=== PATIENT | female | born 1990 | race Caucasian/White ===

== ENCOUNTER 2017-07-08 11:56 | Emergency (ER) | payer MEDICAID ==
--- NOTE | 2017-07-08 13:30 | ED Physician Documentation ---
PD HPI HEAD INJURY - Stated complaint Stated Complaint: HEAD PX - Chief complaint Chief Complaint: Neuro - History obtained from History obtained from: Patient - History of Present Illness Mechanism of head injury: Fell Where head injury occurred: Home Timing - onset: How many months ago (3) Location of injury: Back Quality of pain: Pain, Throbbing Associated symptoms: Amnesia. No: LOC, Nausea / vomiting, Neck pain, Paresthesias, Seizures, Ear drainage, Nasal drainage Symptoms improve with: Rest Symptoms worsen with: Palpation, Movement Contributing factors: No: Anticoagulated Similar symptoms before: Has not had sx before Recently seen: Not recently seen - Additional information Additional information: 26-year-old female has a loft in her home and she was up on a ladder going into the loft when she fell backwards she fell onto the back of her head and had a large hematoma on her occiput. She states that she has vague memory of the day that this occurred and she felt that she improved over the next 2 weeks. Since that time she has had headache specifically in the area where she struck her head and she is having some difficulty concentrating sometimes and has some problem with her short-term memory. The symptoms have persisted and she is come to the emergency department for evaluation. She is not having difficulty with her vision she is not having vomiting she is not having dizziness. She does have a headache and sometimes has a shocklike sensation in her scalp where this has occurred. Review of Systems Constitutional: denies: Fever, Chills, Myalgias Eyes: denies: Loss of vision, Decreased vision Ears: denies: Ear pain Nose: denies: Rhinorrhea / runny nose, Congestion Throat: denies: Sore throat Cardiac: denies: Chest pain / pressure, Palpitations Respiratory: denies: Dyspnea, Cough GI: denies: Abdominal Pain, Nausea, Vomiting : denies: Dysuria, Frequency Skin: denies: Rash Musculoskeletal: denies: Neck pain, Back pain, Extremity pain Neurologic: reports: Headache, Head injury. denies: Generalized weakness, Focal weakness, Numbness, Difficulty speaking, LOC PD PAST MEDICAL HISTORY - Past Surgical History Past Surgical History: No - Present Medications Home Medications: Ambulatory Orders Medication Instructions Recorded Confirmed Levonorgestrel [Mirena] 1 unit IU ONCE 09/22/13 09/22/13 - Allergies Allergies/Adverse Reactions: Allergies Allergy/AdvReac Type Severity Reaction Status Date / Time cefaclor [From [facility]] Allergy Unknown Verified 09/22/13 20:29 - Social History Does the pt smoke?: Yes Smoking Status: Current every day smoker Does the pt drink ETOH?: Yes Does the pt have substance abuse?: Yes - Immunizations Immunizations are current?: Yes PD ED PE NORMAL - Vitals Vital signs reviewed: Yes (normal ) - General General: Alert and oriented X 3, No acute distress, Well developed/nourished - HEENT HEENT: PERRL, EOMI, Ears normal, Moist mucous membranes, Pharynx benign, Dentition benign, Other (over the occiput on the right side is an area about 1cm round that is elevated and tender. There is no crepitence and no fluctuance. There is no pain to the greater occipital exit area and no pain to the cervical spine. 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, No motor deficit, No sensory deficit, Normal speech Eye Opening: Spontaneous Motor: Obeys Commands Verbal: Oriented GCS Score: 15 - Psych Psych: Normal mood, Normal affect Results - Vitals Vitals: Vital Signs - 24 hr 07/08/17 12:07 Temperature 36.2 C L Heart Rate 71 Respiratory 18 Rate Blood Pressure 122/63 O2 Saturation 100 Oxygen O2 Source Room air - Rads (name of study) CT head without Radiology: Prelim report reviewed (Impression: No acute intracranial CT abnormality.), EMP read indepedently, See rad report PD MEDICAL DECISION MAKING - ED course Complexity details: reviewed old records, reviewed results, re-evaluated patient , considered differential, d/w patient ED course: 26 y/o female with a concussion 3 months ago continues to have daily headache and trouble concentrating. Her CT is negative and she appears to have no other specific reason for symptoms and she is diagnosed with post concussive syndrome. Departure - Departure Disposition: 01 Home, Self Care Clinical Impression: Post-concussion headache Condition: Stable Instructions: TBI Headaches, TBI Improve Cognition Follow-Up: [facility] [Provider Group]
--- NOTE | 2017-07-08 15:14 | CT Report ---
EXAM: CT HEAD EXAM DATE: 07/08/2017 02:19 PM. CLINICAL HISTORY: Occipital contusion continued headache. COMPARISON: None. TECHNIQUE: Multiaxial CT images were obtained from the foramen magnum to the vertex. Reformats: Coron al. IV contrast: None. In accordance with CT protocol optimization, one or more of the following dose reduction techniques w ere utilized for this exam: automated exposure control, adjustment of mA and/or KV based on patient s ize, or use of iterative reconstructive technique. FINDINGS: Parenchyma: No intraparenchymal hemorrhage. No evidence of mass, midline shift, or CT findings of inf arction. Cruz-white differentiation is distinct. Extraaxial Spaces: Normal for age. No subdural or epidural collections identified. Ventricles: Normal in size and position. Sinuses and Orbits: There is mild left maxillary sinus mucosal thickening. Bones: No evidence of fracture or calvarial defect. Other: None. IMPRESSION: No acute intracranial CT abnormality. [facility] Referring Provider Line: [phone] SITE ID: [id number]
[2017-07-08 15:29] VITALS: BP 107/57
== END 2017-07-08 15:28 | disposition home or self-care (01) ==
LOC: ED 11:56
DX: F07.81 Postconcussional syndrome (principal); G44.309 Post-traumatic headache, unspecified, not intractable; F17.200 Nicotine dependence, unspecified, uncomplicated
CPT/HCPCS: 70450; 99283

== ENCOUNTER 2017-08-01 08:00 | Outpatient (CLI) | payer MEDICAID | END 2017-08-01 08:01 | LOC: LAB.R 08:00 | PROVIDERS: ATTEND Obstetrics & Gynecology | DX: Z11.3 Encounter for screening for infections with a predominantly sexual mode of transmission (principal); N76.0 Acute vaginitis | CPT/HCPCS: 87070; 87077; 87480; 87491; 87510; 87591; 87660 ==

== ENCOUNTER 2018-03-31 08:00 | Outpatient (CLI) | payer MEDICAID | END 2018-03-31 23:59 | disposition home or self-care (01) | LOC: LAB.R 08:00 | PROVIDERS: ATTEND Nurse Practitioner Obstetrics & Gynecology | DX: N76.0 Acute vaginitis (principal); Z11.3 Encounter for screening for infections with a predominantly sexual mode of transmission | CPT/HCPCS: 87480; 87491; 87510; 87591; 87660 ==

== ENCOUNTER 2018-03-31 13:04 | Outpatient (CLI) | payer MEDICAID ==
[2018-04-01 11:05] LABS: HIV AG/AB 4TH GEN NON-REACTIVE (NON-REACTIVE)
[2018-04-01 12:36] LABS: HEPATITIS C ANTIBODY NON-REACTIVE (NON-REACTIVE)
[2018-04-04 07:58] LABS: HSV 1 IGG TYPE SPECIFIC AB <0.90 index; HSV 2 IGG TYPE SPECIFIC AB 1.72 index
== END 2018-03-31 13:05 | disposition home or self-care (01) ==
LOC: LAB 13:04
PROVIDERS: ATTEND Nurse Practitioner Obstetrics & Gynecology
DX: Z11.3 Encounter for screening for infections with a predominantly sexual mode of transmission (principal); N76.0 Acute vaginitis
CPT/HCPCS: 36415; 81599; 86592; 86695; 86696; 86803; 87389; 87480; 87491; 87510; 87591; 87660

== ENCOUNTER 2020-03-20 15:19 | Outpatient (CLI) | payer MEDICAID | END 2020-03-20 15:20 | disposition home or self-care (01) | LOC: COV 15:19 | PROVIDERS: ATTEND Family Medicine | DX: U07.1 COVID-19 (principal) ==

== ENCOUNTER 2020-09-19 13:04 | Emergency (ER) | payer MEDICAID ==
[2020-09-19 13:14] VITALS: BP 141/70
[2020-09-19 13:29] LABS: BILIRUBIN,URINE NEGATIVE (NEGATIVE); GLUCOSE, URINE (UA) NEGATIVE (NEGATIVE); KETONES,URINE (UA) NEGATIVE (NEGATIVE); LEUKOCYTE ESTERASE, URINE TRACE (NEGATIVE); NITRITE,URINE NEGATIVE (NEGATIVE); OCCULT BLOOD,URINE MODERATE (NEGATIVE); PH,URINE 6.5 PH (5.0-7.5); PROTEIN,URINE TRACE mg/dL (NEGATIVE); UROBILINOGEN,URINE 0.2 (NORMAL) E.U./dL (NORMAL)
[2020-09-19 13:34] LABS: CLARITY,URINE CLEAR (CLEAR); HCG UR QUAL NEGATIVE
[2020-09-19 13:36] LABS: BACTERIA,URINE Rare /HPF (None Seen); SQUAMOUS EPITHELIAL CELL,UR FEW Squamous (<= Few); WBC,URINE 0-3 /HPF (0-5)
--- OUTSIDE RECORDS SUMMARY | 2020-09-19 13:44 | EXTERNAL MEDICAL SUMMARY RPT | Continuity of Care Document ---
:1990 Demographics Phone Unavailable Preferred Language Unknown Marital Status Unknown Taoism Affiliation Unknown Race Unknown Ethnic Group Unknown Author Organization [place] Address [address] [id number] Phone Allergies Encounters Medications Problems Results
[2020-09-19] MEDS ORDERED: PHENAZOPYRIDINE 100 MG TABLET PO STA (14:48)
[2020-09-19] MEDS ORDERED: SULFAMETH/TRIMETH DS 800/160 MG TABLET PO STA (14:48)
--- NOTE | 2020-09-19 14:50 | ED Physician Documentation ---
PD HPI ABD PAIN - Stated complaint Stated Complaint: FEMALE - Chief complaint Chief Complaint: Abd Pain - History obtained from History obtained from: Patient (Dysuria and frequency since yesterday and today with some right flank discomfort. No fevers or nausea.) Review of Systems Constitutional: denies: Fever, Chills Throat: reports: Reviewed and negative Cardiac: reports: Reviewed and negative PD PAST MEDICAL HISTORY - Past Surgical History Past Surgical History: No - Present Medications Home Medications: Ambulatory Orders Medication Instructions Recorded Confirmed Levonorgestrel [Mirena] 1 unit IU ONCE 09/22/13 09/22/13 Phenazopyridine HCl [Pyridium] 200 mg PO TID PRN #6 tablet 09/19/20 Sulfamethox/Trimeth 800/160 1 each PO BID #20 tablet 09/19/20 [Bactrim Ds 800/160] - Allergies Allergies/Adverse Reactions: Allergies Allergy/AdvReac Type Severity Reaction Status Date / Time cefaclor [From Ceclor] Allergy Unknown Verified 09/19/20 13:10 - Social History Does the pt smoke?: Yes Smoking Status: Current every day smoker Does the pt drink ETOH?: Yes Does the pt have substance abuse?: Yes - Immunizations Immunizations are current?: Yes PD ED PE NORMAL - Vitals Vital signs reviewed: Yes - General General: Alert and oriented X 3, No acute distress - Abdomen Abdomen: Normal bowel sounds, Soft, Non tender - Rectal Rectal: Other (Mild right flank tenderness) - Neuro Neuro: Alert and oriented X 3 Results - Vitals Vitals: Vital Signs - 24 hr 09/19/20 13:10 Temperature 36.0 C L Heart Rate 72 Respiratory 16 Rate Blood Pressure 141/70 H O2 Saturation 100 Oxygen O2 Source Room air - Labs Labs: Laboratory Tests 09/19/20 13:15 Urine Color YELLOW Urine Clarity CLEAR Urine pH 6.5 Ur Specific [place] 1.020 Urine Protein TRACE Urine Glucose (UA) NEGATIVE Urine Ketones NEGATIVE Urine Occult Blood MODERATE H Urine Nitrite NEGATIVE Urine Bilirubin NEGATIVE Urine Urobilinogen 0.2 (NORMAL) Ur Leukocyte Esterase TRACE H Urine RBC 6-10 H Urine WBC 0-3 Ur Squamous Epith Cells FEW Squamous Urine Bacteria Rare Ur Microscopic Review INDICATED Urine Culture Comments INDICATED Urine HCG, Qual NEGATIVE Departure - Departure Disposition: 01 Home, Self Care Clinical Impression: Pyelonephritis Condition: Good Record reviewed to determine appropriate education?: Yes Instructions: Pyelonephritis Dc Follow-Up: Johann Mendoza MD [Provider Admit Priv/Credential] - Prescriptions: Sulfamethox/Trimeth 800/160 [Bactrim Ds 800/160] 1 each PO BID #20 tablet Phenazopyridine HCl [Pyridium] 200 mg PO TID PRN #6 tablet PRN Reason: dysuria Comments: We will culture your urine, the results should be done in 48-72 hours. If an antibiotic change is necessary we will call you. Return if worse in the meantime, especially if you develop increasing flank pain, fevers, or cannot keep down the medication.
== END 2020-09-19 14:57 | disposition home or self-care (01) ==
LOC: ED 13:04
DX: N12 Tubulo-interstitial nephritis, not specified as acute or chronic (principal); F17.200 Nicotine dependence, unspecified, uncomplicated
CPT/HCPCS: 81001; 81025; 87086; 87181; 99283; A9270; 81003

== ENCOUNTER 2020-11-03 08:00 | Outpatient (CLI) | payer MEDICAID ==
[2020-11-03 16:30] LABS: BILIRUBIN,URINE NEGATIVE (NEGATIVE); GLUCOSE, URINE (UA) NEGATIVE (NEGATIVE); KETONES,URINE (UA) NEGATIVE (NEGATIVE); LEUKOCYTE ESTERASE, URINE NEGATIVE (NEGATIVE); NITRITE,URINE NEGATIVE (NEGATIVE); OCCULT BLOOD,URINE NEGATIVE (NEGATIVE); PROTEIN,URINE NEGATIVE (NEGATIVE); UROBILINOGEN,URINE 0.2 (NORMAL) E.U./dL (NORMAL)
[2020-11-03 16:37] LABS: BACTERIA,URINE None Seen /HPF (None Seen); CLARITY,URINE CLEAR (CLEAR); MUCUS,URINE Few Strands; RBC,URINE 0-5 /HPF (0-5); SQUAMOUS EPITHELIAL CELL,UR FEW Squamous (<= Few); WBC,URINE 0-3 /HPF (0-5)
== END 2020-11-03 23:59 | disposition home or self-care (01) ==
LOC: LAB.WC 08:00
PROVIDERS: ATTEND Nurse Practitioner Obstetrics & Gynecology
DX: Z32.01 Encounter for pregnancy test, result positive (principal)
CPT/HCPCS: 81001; 87086

== ENCOUNTER 2020-11-18 11:07 | Outpatient (CLI) | payer MEDICAID ==
--- NOTE | 2020-11-18 14:41 | Ultrasound Report ---
PROCEDURE: OB First Trimester INDICATIONS: POSITIVE TEST OUTSIDE/PRIOR DATING DATA: Last menstrual period (LMP): 09/02/2021. LMP-based estimated date of delivery (LEONOR): 06/09/2021. First dating scan (date and location): 11/18/2021. Estimated date of delivery (LEONOR) from first dating scan: 06/05/2021. The below data below was generated using the ultrasound generated LEONOR of 06/05/2021 TECHNIQUE: Real-time scanning was performed of the fetus and maternal pelvic organs, with image documentation. COMPARISON: None FINDINGS: Mean gestational sac measures 5 cm. Fetus measures 4.8 cm. Average ultrasound age 11 weeks 4 days. Fe karolyn heart rate measured at 166 bpm. Measurement variability in dating: +/- 4 weeks by LMP, +/- 7 days by mean sac diameter (use before 6 weeks gestation if crown-rump length not able to be measured), +/- 5 days by crown-rump length (6-12 weeks gestation). Maternal organs: Ovaries normal. IMPRESSION: Single live intrauterine gestation age; average ultrasound age 11 weeks 4 days. Reviewed by: Kerwin Cowart MD on 11/18/2020 2:39 PM PDT Approved by: Kerwin Cowart MD on 11/18/2020 2:39 PM PDT Station ID: [id number]
== END 2020-11-18 11:08 | disposition home or self-care (01) ==
LOC: DI 11:07
PROVIDERS: ATTEND Nurse Practitioner Obstetrics & Gynecology
DX: Z32.01 Encounter for pregnancy test, result positive (principal)

== ENCOUNTER 2020-11-21 08:00 | Outpatient (CLI) | payer MEDICAID ==
[2020-11-21 23:22] LABS: CHLAMYDIA TRACHOMATIS DNA NEGATIVE (NEGATIVE); NEISSERIA GONORRHOEAE DNA NEGATIVE (NEGATIVE); TRICHOMONAS VAGINALIS DNA NEGATIVE (NEGATIVE)
== END 2020-11-21 23:59 | disposition home or self-care (01) ==
LOC: LAB.WC 08:00
PROVIDERS: ATTEND Nurse Practitioner Obstetrics & Gynecology
DX: Z34.90 Encounter for supervision of normal pregnancy, unspecified, unspecified trimester (principal)
CPT/HCPCS: 87491; 87591; 87661

== ENCOUNTER 2020-11-21 10:40 | Outpatient (CLI) | payer MEDICAID ==
[2020-11-21 11:03] LABS: BASOPHILS # (AUTO) 0.1 10^3/uL (0.0-0.1); BASOPHILS % (AUTO) 0.7 %; EOSINOPHILS # (AUTO) 0.1 10^3/uL (0.0-0.7); EOSINOPHILS % (AUTO) 1.6 %; HCT - HEMATOCRIT 35.7 % (37.0-47.0); HGB - HEMOGLOBIN 13.1 g/dL (12.0-16.0); LYMPHOCYTES # (AUTO) 0.9 10^3/uL (1.5-3.5); LYMPHOCYTES % (AUTO) 14.1 %; MEAN CORPUSCULAR HEMOGLOBIN 32.8 pg (27.0-31.0); MEAN CORPUSCULAR HGB CONC 36.7 g/dL (32.0-36.0); MEAN CORPUSCULAR VOLUME 89.5 fL (81.0-99.0); MEAN PLATELET VOLUME 9.3 fL (7.9-10.8); MONOCYTES # (AUTO) 0.3 10^3/uL (0.0-1.0); MONOCYTES % (AUTO) 4.5 %; NEUTROPHILS # (AUTO) 5.3 10^3/uL (1.5-6.6); NEUTROPHILS % (AUTO) 78.8 %; PLT - PLATELET COUNT 214 10^3/uL (130-450); RED BLOOD COUNT 3.99 10^6/uL (4.20-5.40); RED CELL DISTRIBUTION WIDTH 11.3 % (12.0-15.0); WHITE BLOOD COUNT 6.7 x10^3/uL (4.8-10.8)
[2020-11-22 13:11] LABS: HEPATITIS B SURFACE ANTIGEN NON-REACTIVE (NON-REACTIVE)
[2020-11-22 13:18] LABS: HEPATITIS C ANTIBODY NON-REACTIVE (NON-REACTIVE)
[2020-11-22 13:40] LABS: HIV AG/AB 4TH GEN NON-REACTIVE (NON-REACTIVE)
== END 2020-11-21 10:41 | disposition home or self-care (01) ==
LOC: LAB 10:40
PROVIDERS: ATTEND Nurse Practitioner Obstetrics & Gynecology
DX: O98.519 Other viral diseases complicating pregnancy, unspecified trimester (principal); U07.1 COVID-19; Z36.89 Encounter for other specified antenatal screening; Z32.01 Encounter for pregnancy test, result positive
CPT/HCPCS: 36415; 85025; 86592; 86762; 86769; 86787; 86803; 86850; 86900; 86901; 87340; 87389

== ENCOUNTER 2020-12-19 12:11 | Outpatient (CLI) | payer MEDICAID | END 2020-12-19 12:12 | disposition home or self-care (01) | LOC: LAB 12:11 | PROVIDERS: ATTEND Nurse Practitioner Obstetrics & Gynecology | DX: Z36.89 Encounter for other specified antenatal screening (principal) | CPT/HCPCS: 81599; 86592 ==

== ENCOUNTER 2021-01-14 10:57 | Outpatient (CLI) | payer MEDICAID ==
[2021-01-15 13:21] LABS: AFP MOM 0.95; AGE RISK DOWN SYNDROME 1 IN 765; CALC'D GESTATIONAL AGE 19.3 weeks; CIGARETTE SMOKER? NOT GIVEN; DONOR AGE: EGG RETRIEVAL NOT GIVEN; DONOR EGG NO; ESTRIOL MOM 0.93; HCG MOM 0.46; HX OF NEURAL TUBE DEFECTS NO; INHIBIN A MOM 0.56; INSULIN DEPEND DIABETIC NO; MATERNAL WEIGHT 172 lbs; MSS DOWN SYNDROME RISK <1 IN 5000; MSS3 TRISOMY 18 RISK <1 IN 5000; NUMBER OF FETUSES 1; PREV PREGNANCY DOWN SYND NO; RISK FOR ONTD 1 IN 3779
== END 2021-01-14 10:58 | disposition home or self-care (01) ==
LOC: LAB 10:57
PROVIDERS: ATTEND Nurse Practitioner Obstetrics & Gynecology
DX: Z34.90 Encounter for supervision of normal pregnancy, unspecified, unspecified trimester (principal); Z36.0 Encounter for antenatal screening for chromosomal anomalies
CPT/HCPCS: 36415; 81511

== ENCOUNTER 2021-01-27 10:29 | Outpatient (CLI) | payer MEDICAID ==
--- NOTE | 2021-01-27 12:57 | Ultrasound Report ---
PROCEDURE: OB Detailed Eval INDICATIONS: SUPERVISION OF NORMAL OUTSIDE/PRIOR DATING DATA: Last menstrual period (LMP): 09/02/2020. LMP-based estimated date of delivery (LEONOR): 06/09/2021. First dating scan (date and location): 11/18/2020 at [facility]. Estimated date of delivery (LEONOR) from first dating scan: 06/05/2021. The below data below was generated using the ultrasound LEONOR of 06/05/2021 TECHNIQUE: Real-time scanning was performed of the fetus, with image documentation and biometric measurements. Endovaginal scanning: Not performed. COMPARISON: OB ultrasound 11/18/2020 FINDINGS: General: A single living intrauterine gestation is present. Presentation: Breech Placenta: Placental position is posterior, without previa. Amniotic fluid index: 13.2 cm, normal for gestational age. Largest vertical pocket 3.5 cm. heart rate: 145 beats per minute. Maternal cervical canal: 4.4 cm long; normal length is 2.5 cm or more. biometrics: Biparietal diameter: 5.0 cm, 21 weeks 1 day Head circumference: 18.3 cm, 20 weeks 5 days Abdominal circumference: 16.7 cm, 21 weeks 5 days Femur length: 3.6 cm, 21 weeks 3 days Estimated gestational age from initial scan: 21 weeks 4 days. Composite gestational age from present scan: 20 weeks 6 days Estimated weight and percentile: 428 g, 40th percentile Measurement variability in biometric dating: +/- 10 days from 12-20 weeks gestation, +/- 2 weeks from 20-30 weeks gestation, +/- 3 weeks at 30 weeks gestation or later. Anatomic survey: Neuro: Ventricles are normal at less than 10 mm. Cisterna magna is normal at 3-11 mm. Cerebellum i s normal in size and morphology. Nuchal skin fold: Normal at less than 6 mm between 14 and 20 weeks gestational age. Face: Nose and lips are normal. Facial profile view is slightly suboptimal. Spine: The skin overlying the lumbosacral spine is not well-visualized due to positioning. The spine otherwise appears normal. Heart: 4-chambered heart is present. Ventricular outflow tracks are not visualized. Diaphragm: Diaphragm is intact. Stomach: Left-sided stomach is present. Kidneys: No hydronephrosis. Normal is less than 5 mm in 2nd trimester, less than 7 mm in 3rd trimester. Cord: 3 vessel cord has orthotopic insertion. Bladder: Normal in size. Extremities: All 4 extremities are visualized. IMPRESSION: 1.Single live intrauterine with appropriate interval growth. 2.Ventricular outflow tracts, lumbosacral spine, and facial profile are not well visualized. Recommen d follow-up exam. 3.Otherwise, normal anatomic survey. Reviewed by: Osito Ryan MD on 01/27/2021 12:55 PM PDT Approved by: Osito Ryan MD on 01/27/2021 12:55 PM PDT Station ID: [id number]
== END 2021-01-27 10:30 | disposition home or self-care (01) ==
LOC: DI 10:29
PROVIDERS: ATTEND Advanced Practice Midwife
DX: Z34.02 Encounter for supervision of normal first pregnancy, second trimester (principal)

== ENCOUNTER 2021-02-07 16:48 | Outpatient (CLI) | payer MEDICAID ==
--- NOTE | 2021-02-07 18:57 | Ultrasound Report ---
PROCEDURE: OB F/U or Repeat INDICATIONS: SUPERVISION OF OUTSIDE/PRIOR DATING DATA: Last menstrual period (LMP): 09/02/2020. LMP-based estimated date of delivery (LEONOR): 06/09/2021. First dating scan (date and location): 11/18/2020. Estimated date of delivery (LEONOR) from first dating scan: 06/05/2021. The below data below was generated using the first dating scan generated LEONOR of 06/05/2021 TECHNIQUE: Real-time scanning was performed of the fetus, with image documentation and biometric measurements. COMPARISON: 11/18/2020, 01/27/2021. FINDINGS: General: A single living intrauterine gestation is present. Presentation: Vertex Placenta: Placental position is posterior, without previa. Amniotic fluid index: 18.9 cm, normal for gestational age. Largest pocket measures 5.2 cm. heart rate: 141 beats per minute. Maternal cervical canal: 3.8 cm long; normal length is 2.5 cm or more. Estimated gestational age from initial scan: 23 weeks, 1 day. Other: Four-chamber heart, spine, outflow tracts, chest, stomach, bilateral kidneys and urinary bladder are visualized and are within normal limits. A corpus luteum measures 0.9 x 0.6 x 1 cm in size is seen in right ovary. IMPRESSION: 1. Single live intrauterine with fetus in vertex presentation. heart rate is 141 bpm. Normal amount of amniotic fluid. 2. Four-chamber heart, spine, outflow tracts, chest, stomach, bilateral kidneys and urina ry bladder are visualized and are within normal limits. 3. Small corpus luteum in right ovary as above. Reviewed by: Tejas Wise MD on 02/07/2021 6:55 PM PDT Approved by: Tejas Wise MD on 02/07/2021 6:55 PM PDT Station ID: [id number]
== END 2021-02-07 16:49 | disposition home or self-care (01) ==
LOC: DI 16:48
PROVIDERS: ATTEND Nurse Practitioner Obstetrics & Gynecology
DX: Z34.02 Encounter for supervision of normal first pregnancy, second trimester (principal)

== ENCOUNTER 2021-03-09 12:04 | Outpatient (CLI) | payer MEDICAID ==
[2021-03-09 13:34] LABS: HCT - HEMATOCRIT 31.7 % (37.0-47.0); HGB - HEMOGLOBIN 11.1 g/dL (12.0-16.0); MEAN CORPUSCULAR HEMOGLOBIN 32.6 pg (27.0-31.0); MEAN PLATELET VOLUME 8.9 fL (7.9-10.8); RED BLOOD COUNT 3.41 10^6/uL (4.20-5.40); RED CELL DISTRIBUTION WIDTH 12.3 % (12.0-15.0); WHITE BLOOD COUNT 6.7 x10^3/uL (4.8-10.8)
== END 2021-03-09 12:05 | disposition home or self-care (01) ==
LOC: LAB 12:04
PROVIDERS: ATTEND Nurse Practitioner Obstetrics & Gynecology
DX: Z36.89 Encounter for other specified antenatal screening (principal)
CPT/HCPCS: 36415; 82950; 85027

== ENCOUNTER 2021-05-13 08:00 | Outpatient (CLI) | payer MEDICAID | END 2021-05-13 23:59 | LOC: LAB 08:00 | PROVIDERS: ATTEND Nurse Practitioner Obstetrics & Gynecology | DX: Z36.85 Encounter for antenatal screening for Streptococcus B (principal) | CPT/HCPCS: 87797 ==

== ENCOUNTER 2021-06-10 07:27 | Inpatient (IN) | payer MEDICAID ==
[2021-06-10] MEDS ORDERED: SODIUM CHLORIDE FLUSH 0.9% 10 ML SYRINGE IVP PRN (08:16)
[2021-06-10] MEDS ORDERED: miSOPROStoL 200 MCG TABLET BC PRN (08:16)
[2021-06-10] MEDS ORDERED: ONDANSETRON 4 MG/2 ML VIAL IVP PRN ×2 (08:16→09:07)
[2021-06-10] MEDS ORDERED: LIDOCAINE-MPF 1% 30 ML VIAL ID PRN (08:16)
[2021-06-10] MEDS ORDERED: METHYLERGONOVINE 0.2 MG/ML VIAL IM PRN (08:16)
[2021-06-10] MEDS ORDERED: TRANEXAMIC ACID IN NACL 1,000 MG/100 ML BAG IV PRN (08:16)
[2021-06-10] MEDS ORDERED: CARBOPROST TROMETHAMINE 250 MCG/ML AMP IM PRN (08:16)
[2021-06-10] MEDS ORDERED: OXYTOCIN/SODIUM CHLORIDE 500 ML IV PRN (08:16)
[2021-06-10] MEDS ORDERED: OXYTOCIN 10 UNIT/ML VIAL IM PRN (08:16)
--- NOTE | 2021-06-10 08:20 | HISTORY & PHYSICAL EXAMINATION ---
Admit History - Visit Reason Visit Reason: Other - : 2 Parity: 1 Premature: 0 Ectopic: 0 : 0 Care: positive: [facility] Risk/History: positive: None Complications This : positive: None Smoking Status: Never smoker - Mother's Labs Mother's Blood Type: positive: B Mother's RH: positive: Positive GBS: positive: Group B Step Negative Rubella Status: positive: Immune Meds/Allgy - Allergies Allergies/Adverse Reactions: Allergies Allergy/AdvReac Type Severity Reaction Status Date / Time cefaclor [From Ceclor] Allergy Unknown Verified 09/19/20 13:10 Review of Systems - Constitutional Constitutional: denies: Fatigue, Fever, Chills, Malaise - Eyes Eyes: denies: Blurred vision, Spots in vision, Dipolpia - Cardiovascular Cariovascular: denies: Irregular heart rate, Palpitations, Chest pain, Edema - Respiratory Respiratory: denies: Cough, SOB at rest - Gastrointestinal Gastrointestinal: denies: Change in bowel habits, Nausea, Vomiting - Integumentary Integumentary: denies: Rash, Pruritis - Neurological Neurological: denies: Headache Physical - Abdominal Exam Vital Signs: Temp Pulse Resp BP Pulse Ox 36.9 C 06/10/21 07:49 Contraction Frequency (min/apart): occasional Contraction Intensity: positive: Mild - Monitoring Heart Rate Baseline: 130 Strip Review: positive: Category I - Presentation Presentation: positive: Vertex - Vaginal Exam Membranes: positive: Membranes intact Dilation (in cm): 4-5 Effacement (%): 70 Station: positive: -2 - Speculum Exam Speculum Exam Performed: positive: No Plan for Labor - Plan For Labor I expect patient to be DC'd or transferred within 96 hours.: Yes Plan for Labor: Akanksha is a 30yo @ 40.2 wks gestation by LMP c/w 11.4wk U/S who presents today for elective induction of labor secondary to advanced dilation. She denies contractions. Reports increased mucousy discharge over the past several days. Denies bleeding or leakage of fluid. She reports +FM. She has been a patient of [facility] [place] for the duration of her which has remained uncomplicated with the exception of mild anemia which was treated with daily oral FeSO4 supplementation. In addition she was noted to have a reactive RPR with her panel however the FTA ATB was negative and she has no significant history. She will be admitted for induction of labor with artificial rupture of membranes. Pt desires working epidural prior to initiation of induction secondary to poor first labor experience secondary to significant pain and non- working epidural that required replacement 3 times. She is supported by her partner Malik. Dating criteria: LMP 09/02/2020 Initial U/S @ 11.4wks c/w LMP dating Serial exams agree OB Hx: G1: 03/02/2011, @ 40wks, epidural, [facility], Male, 7lbs. Tear with excessive bleeding from tear- healed well G2: Current Medications: PNV, FeSO4 Allergies: Celor (critical) PMHx: none Surgical Hx: none Social Hx: Never smoker. No ETOH or IVDA. Partner Malik Family Hx: Diabetes - MGM, MGF, Sister; Depression- mother; HTN- MGM, father; cervical cancer - MGM course: PROBLEMS: Mild anemia - FeSO4 initiated LMP 09/02/2021 LEONOR by LMP 06/09/2021 Initial U/S at 11.4wks gestation c/w LMP dating (LEONOR 06/05/2021) FINAL LEONOR 06/09/2021 B pos/Rubella immune VZV:non immune RPR- NEGATIVE FTA ATB (original result was reactive) Genetic testing: quad screen- NEG FAS WNL with the exception of incomplete visualization of profile, spine, and outflow tracts. Posterior placenta, no previa. MADELEINE WNL. 3VC. Size c/w dating (EFW 40%tile). Completion FAS WNL Glucola: 109 Influenza: Declined TDAP 03/11/2021 COVID vacc: completed (also had infection 03/2020) GBS @ 36.2 wks- Negative HSV: denies in self and partner Breast pump Rx has MOD: Anticipate ; Partner Malik, son Branden; desires epidural; breast(struggled with first). Girl! pp contraception: Likely Mirena pap: 01/10/2020 WNL Physical Exam: Normocephalic, atraumtic Heart RRR w/o M/G/R LUngs CTAB Abdomen gravid, soft, nontender EFW 3400g FHR baseline 130s, + accels, no decels Contractions occasionally. Palpate mild with soft resting tone. SVE 4-5/70/-2, mid position, soft with intact membranes. Bilateral LE's trace edema. Mood is good. Assessment: 30yo @ 40.2wks gestation by LMP c/w 11.4wk U/S Elective IOL GBS neg FHR category I Plan: Admit for active management. AROM followed by expectant management x 2 hours, then initiate pitocin PRN Continuous monitoring Epidural per maternal request. Anticipate .
[2021-06-10] MEDS ORDERED: BUPIVACAINE 0.25% PF 10 ML VIAL ONE (08:24)
[2021-06-10] MEDS ORDERED: ROPIVACAINE 0.2% 200 MG/100 ML BAG EP ONE (08:24)
[2021-06-10] MEDS ORDERED: fentaNYL 100 MCG/2 ML VIAL ONE (08:24)
[2021-06-10 08:30] LABS: BASOPHILS % (AUTO) 0.4 %; EOSINOPHILS # (AUTO) 0.1 10^3/uL (0.0-0.7); EOSINOPHILS % (AUTO) 1.2 %; HCT - HEMATOCRIT 34.4 % (37.0-47.0); HGB - HEMOGLOBIN 12.3 g/dL (12.0-16.0); LYMPHOCYTES # (AUTO) 1.3 10^3/uL (1.5-3.5); LYMPHOCYTES % (AUTO) 16.1 %; MEAN CORPUSCULAR HEMOGLOBIN 32.2 pg (27.0-31.0); MEAN CORPUSCULAR HGB CONC 35.8 g/dL (32.0-36.0); MEAN CORPUSCULAR VOLUME 90.1 fL (81.0-99.0); MONOCYTES # (AUTO) 0.6 10^3/uL (0.0-1.0); MONOCYTES % (AUTO) 7.1 %; NEUTROPHILS # (AUTO) 6.2 10^3/uL (1.5-6.6); PLT - PLATELET COUNT 159 10^3/uL (130-450); RED BLOOD COUNT 3.82 10^6/uL (4.20-5.40); RED CELL DISTRIBUTION WIDTH 12.8 % (12.0-15.0); WHITE BLOOD COUNT 8.3 x10^3/uL (4.8-10.8)
[2021-06-10] MEDS: LACTATED RINGERS 1,000 ML IV SCH ×2 (08:30→14:02)
--- NOTE | 2021-06-10 08:31 | ANESTHESIA ---
Pre-Anesthesia VS, & Labs - Diagnosis active labor - Procedure labor epidural Vital Signs: Temp Pulse Resp BP Pulse Ox 36.9 C 06/10/21 07:49 Height: 5 ft 3 in Weight (kg): 83.552 kg Body Mass Index: 32.6 BMI Classification: Obese - NPO >8 hours - Is Patient ?: Yes - Lab Results Lab results reviewed: Yes Home Medications and Allergies Active Medications Carboprost Tromethamine (Carboprost Tromethamine 250 Mcg/Ml Amp) 250 mcg IM Q15M PRN PRN Reason: Step 4: Hemorrhage protocol Stop: 06/15/21 08:16 Oxytocin/Sodium Chloride (Pitocin/Sodium Chloride) 500 mls @ 999 mls/hr IV PRN PRN; Protocol PRN Reason: POST- HEMORR PREVENTION Stop: 06/15/21 08:16 Tranexamic Acid (Tranexamic 1,000 Mg/100ml-Nacl) 1,000 mg in 100 mls @ 600 mls/hr IV .ONCE PRN PRN Reason: EBL >1200mL and within 3hr Stop: 06/15/21 08:16 Lactated Ringer's (Lr) 1,000 mls @ 100 mls/hr IV .Q10H SONIA Lidocaine HCl (Lidocaine-Mpf 1% 30 Ml Vial) 30 ml ID .ONCE PRN PRN Reason: PERINEAL REPAIR Stop: 06/15/21 08:16 Methylergonovine Maleate (Methylergonovine 0.2 Mg/Ml Vial) 0.2 mg IM .ONCE PRN PRN Reason: Step 2: Hemorrhage protocol Stop: 06/15/21 08:16 Misoprostol (Misoprostol 200 Mcg Tablet) 800 mcg BC .ONCE PRN PRN Reason: Step 3: Hemorrhage protocol Stop: 06/15/21 08:16 Ondansetron HCl (Ondansetron 4 Mg/2 Ml Vial) 4 mg IVP Q4HR PRN PRN Reason: Nausea / Vomiting Oxytocin (Oxytocin 10 Unit/Ml Vial) 10 unit IM .ONCE PRN PRN Reason: Step one: If no IV access Stop: 06/15/21 08:16 Sodium Chloride (Sodium Chloride Flush 0.9% 10 Ml Syringe) 10 ml IVP 0100,0900,1700 SONIA Sodium Chloride (Sodium Chloride Flush 0.9% 10 Ml Syringe) 10 ml IVP PRN PRN PRN Reason: NEEDED PER PROVIDER ORDERS Allergies/Adverse Reactions: Allergies Allergy/AdvReac Type Severity Reaction Status Date / Time cefaclor [From Ceclor] Allergy Unknown Verified 09/19/20 13:10 Anes History & Medical History - Anesthetic History Anesthesia Complications: reports: Other-see comment (difficult epidural placement per patient) Family history of Anesthesia Complications: Denies Family history of Malignant Hyperthermia: Denies - Medical History Smoking Status: Never smoker - Obstetrical History : 2 Parity: 1 Events: reports: None Complications: reports: None Exam General: Alert, Oriented x3, Cooperative, No acute distress Plan Anesthesia Type: Epidural Consent for Procedure(s) Verified and Reviewed: Yes Code Status: Attempt Resuscitation ASA classification: 2-Mild systemic disease Is this case an emergency?: No
[2021-06-10] MEDS ORDERED: SODIUM CHLORIDE FLUSH 0.9% 10 ML SYRINGE IVP SCH (09:00)
[2021-06-10] MEDS ORDERED: METOCLOPRAMIDE 10 MG/2 ML VIAL IVP PRN (09:07)
[2021-06-10] MEDS ORDERED: ePHEDrine 50 MG/ML VIAL IVP PRN (09:07)
[2021-06-10] MEDS ORDERED: NALBUPHINE 10 MG/ML AMP IVP PRN (09:07)
[2021-06-10] MEDS ORDERED: ROPIVACAINE 0.2% 200 MG/100 ML BAG EP PRN (09:07)
[2021-06-10] MEDS ORDERED: diphenhydrAMINE INJ 50 MG/ML VIAL IVP PRN (09:07)
[2021-06-10] MEDS ORDERED: NALOXONE 0.4 MG/ML VIAL IVP PRN (09:07)
--- NOTE | 2021-06-10 12:21 | PROVIDER PROGRESS NOTE ---
Labor Progress Note - Uterine Monitoring Uterine Monitoring Mode: positive: External toco Contraction Frequency (min/apart): occasional Contraction Intensity: positive: Mild Uterine Resting Tone: positive: Soft - Monitoring Monitor Mode: positive: External ultrasound Heart Rate Baseline: 130 Heart Rate Variability: positive: Moderate (6-25 bmp) Accelerations: positive: Present, 15x15 Decelerations: positive: None Strip Review: positive: Category I - Labor Progress Note Labor Progress Note/Additional Text: Pt comfortable with epidural laying on right side currently because her left side felt very numb. Her mood is good and she states she is doing very well. Her partner is supportive at the bedside. O: FHR baseline 130s, moderate variability, + accels, no decels Contractions palpate mild only occasionally with soft resting tone SVE deferred A: 30yo @ 40.2wks gestation by LMP c/w 11.4wk U/S FHR category I GBS neg Elective IOL P: Initiate pitocin for induction of labor with titration per protocol Continuous monitoring Maintain epidural for pain management. Encouraged rotation in bed on peanut ball. Anticipate .
[2021-06-10] MEDS ORDERED: OXYTOCIN/SODIUM CHLORIDE 500 ML IV SCH (13:00)
[2021-06-10] MEDS ORDERED: HYDROCORTISONE 1% CREAM 28 GM TUBE PR PRN (19:08)
[2021-06-10] MEDS ORDERED: WITCH HAZEL/GLYCERIN 1 PAD TOP PRN (19:08)
--- NOTE | 2021-06-10 19:17 | DELIVERY NOTE ---
Delivery Note - Labor Labor: positive: Induced by ARM, Induced by oxytocin - Infant Delivery Method Delivery Method: positive: Spontaneous vaginal delivery - Presentation Presentation: positive: Vertex, VERONIKA - left occiput anterior - Nuchal Cord Nuchal Cord: positive: Present - Amniotic Fluid Description Amniotic Fluid Description: positive: Clear - Episiotomy Type Episiotomy Type: positive: None - Laceration Laceration: positive: None - Delivery Outcome Delivery Outcome: positive: Livebirth - : positive: Placed in direct skin contact with mother, Stimulated, Warmed, [place] used sex: positive: Female - Cord Cord: positive: 3 vessels - Placenta Placenta: positive: Intact, Spontaneous - Estimated Blood Loss Estimated Blood Loss (in cc): 300 - Post Delivery Events Post Delivery Events: positive: No post delivery events - Delivery Comments (Free Text/Narrative) Delivery Comments (Free Text/Narrative): Labor: This 30yo @ 40.2wks gestation by LMP c/w 11.4wk U/S presented on 06/10/2021 for elective induction of labor. Cervix was 4-5/70/-2 and vertex with intact membranes. FHR pattern demonstrated Category I pattern throughout labor. Epidural placed per maternal request. AROM occurred at 0914 and was noted to be a moderate amount of clear fluid. Pitocin initiated for induction of labor with maximum infusion rate of 4mU/mL. Normal labor course. Pt progressed to c/c/+1 at 1835 with onset of active pushing at 1843. : Normal of viable female infant on 06/10/2021 @ 1851. Nuchal cord x 1 somersaulted through due to rapid descent. The was placed on maternal abdomen, stimulated, dried, and placed skin to skin. 's were 9/9 at 1 and 5 minutes respectively. Pitocin administered via IV for hemostasis. The umbilical cord was allowed to stop pulsating at which time it was doubly clamped by CNM and cut by FOB. Cord blood was obtained. 3VC. Fundal massage and gentle cord traction applied for active management of the third stage. Placenta delivered spontaneously and intact @ 1856. EBL 300mL. Fourth stage: Uterine fundus firm and there is no excessive bleeding. The perineum, vagina, and cervix were inspected and found to be intact. Family bonding well. Both mother and baby were left in stable condition.
[2021-06-10] MEDS: ACETAMINOPHEN 500 MG TABLET PO SCH (22:14)
[2021-06-10] MEDS: IBUPROFEN 800 MG TABLET PO SCH (22:14)
[2021-06-10] MEDS: DOCUSATE SODIUM 100 MG CAPSULE PO SCH (22:15)
[2021-06-11] MEDS: IBUPROFEN 800 MG TABLET PO SCH ×2 (04:25→11:40)
[2021-06-11] MEDS: ACETAMINOPHEN 500 MG TABLET PO SCH ×2 (06:34→14:28)
[2021-06-11] MEDS: LACTATED RINGERS 1,000 ML IV SCH ×2 (07:26→07:28)
[2021-06-11] MEDS: DOCUSATE SODIUM 100 MG CAPSULE PO SCH (11:40)
--- NOTE | 2021-06-11 14:54 | Discharge Plan ---
Discharge Plan Problem Reviewed?: Yes Disposition: Home, Self Care Condition: Good Diet: Regular Activity Restrictions: No Restrictions Shower Restrictions: No Driving Restrictions: No Weight Bearing: Full Weight Instruction Topics: Vaginal After No Smoking: If you smoke, Please STOP! Call for help. Follow-up with: Holly Quinn CNM, ARNP [Provider Admit Priv/Credential] - 1 Week
--- NOTE | 2021-06-11 15:02 | DISCHARGE SUMMARY ---
Discharge Summary Condition at Discharge: Good Discharge Disposition: 01 Home, Self Care - HOSPITAL COURSE Hospital Course: Date of Admission: 06/10/2021 Date of Discharge: 06/11/2021 Diagnosis on Admission: 1. 30yo @ 40.2wks gestation by LMP c/w 11.4wk U/S 2. Elective IOL 3. GBS neg 4. FHR category I Diagnosis of Discharge: 1. 30yo PPD#1 s/p TSVD viable female 2. Normal recovery 3. Brief history: She is a patient of [facility] who presented on 06/10/2021 for elective induction of labor. AROM occurred and epidural was placed per maternal request. Pitocin initiated for induction of labor for a maximum infusion rate of 4mU/mL. She progressed to spontaneously deliver a viable female on 06/10/2021 @ 1851 over intact perineum. Nuchal cord x 1. Apgars were 9/9 at 1 and 5 minutes respectively. EBL 300mL. She has been doing well in her course. She is ambulating and tolerating a regular diet. She is urinating without difficulty and her lochia is normal. Her pain is well controlled with oral medications. She is bonding well with baby and without difficulty. She will be discharged home today on day #1 with instructions to continue taking her vitamin while and to continue taking ibuprofen and tylenol over the counter as needed for pain management. She intends to follow up with myself at [facility] in 1 week or sooner if needed. She has been given precautions to call if she has any worsening fevers, chills, abdominal pain, increased vaginal bleeding or foul smelling vaginal lochia. Physical exam: Normocephalic, atraumatic. Heart RRR w/o M/G/R, lungs CTAB, abdomen soft and nontender with fundus firm at U, perineum intact, light lochia rubra, bilateral LE's trace edema. - ALLERGIES Allergies/Adverse Reactions: Allergies Allergy/AdvReac Type Severity Reaction Status Date / Time cefaclor [From Ceclor] Allergy Unknown Verified 09/19/20 13:10 - LABS Result Diagrams: 06/10/21 07:53
[2021-06-11 16:32] VITALS: BP 106/54
--- NOTE | 2021-06-11 23:10 | Labor Flowsheet ---
Labor Flowsheet Datetime Report Generated by CPN: 06/11/2021 23:10 Datetime: 06/11/2021 16:18 VITAL SIGNS NBP Sys/Radha/Mean (mmHg): 106 : 54 : 65 Pulse: 59 Datetime: 06/10/2021 19:11 Membranes Ruptured Date/Time: 06/10/2021 09:14 Datetime: 06/10/2021 19:00 Stage of : Recovery Datetime: 06/10/2021 18:50 SpO2 (%): 100 LaborFlag: Labor Datetime: 06/10/2021 18:45 UTERINE ACTIVITY Monitor Mode: External Frequency (min): 2-2.5 Quality: Strong Duration (sec): 60-80 Pattern: Normal: <= 5 Contractions in 10 Minutes Resting Tone (Palpate): Relaxed ASSESSMENT A Monitor Mode: Telemetry FHR Baseline Rate : 120 FHR Baseline Changes: No Baseline Change Variability: Moderate 6-25 bpm Accelerations: 15X15 Decelerations: Variable; Prolonged Actions for Decelerations: pushing Category: Category II Datetime: 06/10/2021 18:43 STAGE 2 Pushing: Coached on Pushing Pushing Position: Pushing with Contractions Pushing Progress: Descent with Pushing Datetime: 06/10/2021 18:42 COMMUNICATION Communication: Provider at Bedside Provider Notified (Name): Kai Communication Comments: here for delivery Datetime: 06/10/2021 18:35 VAGINAL EXAM Dilatation (cm): 10.0 Station: 2 Exam by: em Datetime: 06/10/2021 18:01 Respirations: 18 Temperature (C): 36.8 Datetime: 06/10/2021 17:33 PATIENT CARE Patient Position/Activity: Left Lateral Datetime: 06/10/2021 17:05 Anesthesia Level Check: T7 Datetime: 06/10/2021 16:07 Hygiene: Underpad Changed Datetime: 06/10/2021 14:44 Monitor Interventions for UA: Florien Adjusted Monitor Interventions for FHR: Ultrasound Adjusted Datetime: 06/10/2021 14:28 MEDICATIONS Pitocin (milliunits): Increased to @ 4 Datetime: 06/10/2021 12:03 Provider Reviewed Strip: Yes Notification Reason: Status Update Datetime: 06/10/2021 10:05 I/O Interventions: Mendoza Cath Inserted Datetime: 06/10/2021 09:14 Membrane Status: Ruptured Membranes Rupture Method: Artificial Amniotic Fluid Color: Clear Amniotic Fluid Amount: Small Amniotic Fluid Odor: Normal Datetime: 06/10/2021 09:13 Effacement (%): 70 Datetime: 06/10/2021 09:00 Epidural Procedure Other: Pump Started Datetime: 06/10/2021 08:51 ANESTHESIA Epidural Procedure: Loading Dose
== END 2021-06-11 21:11 | disposition home or self-care (01) | DRG 807 ==
LOC: WFO 07:27 → FBP 07:32 → WFO 08:15 → FBP 08:16
PROVIDERS: ADMIT Nurse Practitioner Obstetrics & Gynecology; ATTEND Nurse Practitioner Obstetrics & Gynecology
PROC: 10E0XZZ Delivery of Products of Conception, External Approach (ICD-10-PCS; principal; 2021-06-10)
PROC: 3E033VJ Introduction of Other Hormone into Peripheral Vein, Percutaneous Approach (ICD-10-PCS; 2021-06-10)
PROC: 10907ZC Drainage of Amniotic Fluid, Therapeutic from Products of Conception, Via Natural or Artificial Opening (ICD-10-PCS; 2021-06-10)
DX: O48.0 Post-term pregnancy (principal); Z37.0 Single live birth; O69.81X0 Labor and delivery complicated by cord around neck, without compression, not applicable or unspecified; Z3A.40 40 weeks gestation of pregnancy; Z80.49 Family history of malignant neoplasm of other genital organs; Z81.8 Family history of other mental and behavioral disorders; Z82.49 Family history of ischemic heart disease and other diseases of the circulatory system; Z83.3 Family history of diabetes mellitus
CPT/HCPCS: 36415; 85025; 86850; 86900; 86901; A9270; J7120

== ENCOUNTER 2022-10-06 16:00 | Outpatient (CLI) | payer MEDICAID | END 2022-10-06 16:01 | disposition home or self-care (01) | LOC: LAB 16:00 | PROVIDERS: ATTEND Nurse Practitioner Obstetrics & Gynecology | DX: O26.851 Spotting complicating pregnancy, first trimester (principal) | CPT/HCPCS: 36415; 84702 ==

== ENCOUNTER 2022-10-08 12:40 | Outpatient (CLI) | payer MEDICAID | END 2022-10-08 12:41 | disposition home or self-care (01) | LOC: LAB 12:40 | PROVIDERS: ATTEND Nurse Practitioner Obstetrics & Gynecology | DX: O26.851 Spotting complicating pregnancy, first trimester (principal) | CPT/HCPCS: 36415; 84702 ==

== ENCOUNTER 2022-11-08 12:37 | Outpatient (CLI) | payer MEDICAID ==
[2022-11-08 13:06] LABS: BASOPHILS % (AUTO) 0.7 %; EOSINOPHILS # (AUTO) 0.1 10^3/uL (0.0-0.7); EOSINOPHILS % (AUTO) 2.1 %; HCT - HEMATOCRIT 36.5 % (37.0-47.0); HGB - HEMOGLOBIN 12.9 g/dL (12.0-16.0); LYMPHOCYTES # (AUTO) 0.9 10^3/uL (1.5-3.5); LYMPHOCYTES % (AUTO) 15.9 %; MEAN CORPUSCULAR HEMOGLOBIN 31.4 pg (27.0-31.0); MEAN CORPUSCULAR HGB CONC 35.3 g/dL (32.0-36.0); MEAN CORPUSCULAR VOLUME 88.8 fL (81.0-99.0); MEAN PLATELET VOLUME 9.5 fL (7.9-10.8); MONOCYTES # (AUTO) 0.3 10^3/uL (0.0-1.0); MONOCYTES % (AUTO) 5.2 %; NEUTROPHILS # (AUTO) 4.3 10^3/uL (1.5-6.6); NEUTROPHILS % (AUTO) 76.1 %; PLT - PLATELET COUNT 233 10^3/uL (130-450); RED BLOOD COUNT 4.11 10^6/uL (4.20-5.40); RED CELL DISTRIBUTION WIDTH 11.5 % (12.0-15.0); WHITE BLOOD COUNT 5.6 x10^3/uL (4.8-10.8)
[2022-11-09 04:19] LABS: HBsAG SCREEN Negative (Negative); HCV AB Non Reactive (Non Reactive); HIV SCREEN 4TH GENERATION Non Reactive (Non Reactive)
[2022-11-09 08:21] LABS: RPR Non Reactive (Non Reactive)
[2022-11-09 11:21] LABS: VARICELLA-ZOSTER AB IGG <135 index (Immune >165)
== END 2022-11-08 12:38 | disposition home or self-care (01) ==
LOC: LAB 12:37
PROVIDERS: ATTEND Nurse Practitioner Obstetrics & Gynecology
DX: Z36.89 Encounter for other specified antenatal screening (principal)
CPT/HCPCS: 36415; 85025; 86592; 86787; 86803; 86850; 86900; 86901; 87340; 87389

== ENCOUNTER 2022-12-16 16:50 | Outpatient (CLI) | payer MEDICAID ==
[2022-12-18 21:07] LABS: AFP MOM 0.86 (.); AFP VALUE 27.6 ng/mL (.); GEST. AGE ON COLLECTION DATE 15.9 weeks (.); GESTAT. AGE METHOD EDD (.); INSULIN DEP DIABETES No (.); MATERNAL AGE AT EDD 31.7 yr (.); MULTIPLE GESTATION No (.); OPEN SPINA BIFIDA RISK 1 IN 10000 (.); RACE Caucasian (.); RESULTS Report (.); TEST RESULTS *Screen Negative* (.); WEIGHT 165 lbs (.)
== END 2022-12-16 16:51 | disposition home or self-care (01) ==
LOC: LAB 16:50
PROVIDERS: ATTEND Nurse Practitioner Obstetrics & Gynecology
DX: Z13.79 Encounter for other screening for genetic and chromosomal anomalies (principal)
CPT/HCPCS: 82105

== ENCOUNTER 2023-01-31 07:26 | Outpatient (CLI) | payer MEDICAID ==
--- NOTE | 2023-01-31 12:46 | Ultrasound Report ---
PROCEDURE: OB F/U or Repeat INDICATIONS: SUPERVISION OF OUTSIDE/PRIOR DATING DATA: Last menstrual period (LMP): 08/27/2022. LMP-based estimated date of delivery (LEONOR): 06/03/2023. First dating scan (date and location): 10/26/2022. Estimated date of delivery (LEONOR) from first dating scan: 06/07/2023. The below data below was generated using the working LEONOR of 06/03/2023 TECHNIQUE: Real-time scanning was performed of the fetus, with image documentation and biometric measurements. Endovaginal scanning: Not performed. COMPARISON: 01/10/2023 FINDINGS: General: A single living intrauterine gestation is present. Presentation: Cephalic Placenta: Placental position is posterior, without previa. Amniotic fluid index: 15.3 cm, 37 percentile for gestational age. heart rate: 126 beats per minute. Maternal cervical canal: 5.0 cm long; normal length is 2.5 cm or more. Estimated gestational age from initial scan: 22 week 3 day Measurement variability in biometric dating: +/- 10 days from 12-20 weeks gestation, +/- 2 weeks from 20-30 weeks gestation, +/- 3 weeks at 30 weeks gestation or more. Other: nose and lips, cardiac outflow tracts, and extremities are well visualized and appear no rmal. IMPRESSION: Single live intrauterine consistent with a 22 week 3 day gestation. Completed anatomy survey within normal limits. Reviewed by: Edi Mendez MD on 01/31/2023 11:44 AM GALLO Approved by: Edi Mendez MD on 01/31/2023 11:44 AM GALLO Station ID: [id number]
== END 2023-01-31 07:27 | disposition home or self-care (01) ==
LOC: DI 07:26
PROVIDERS: ATTEND Nurse Practitioner Obstetrics & Gynecology
DX: Z34.02 Encounter for supervision of normal first pregnancy, second trimester (principal); Z36.89 Encounter for other specified antenatal screening

== ENCOUNTER 2023-02-25 10:53 | Outpatient (CLI) | payer MEDICAID ==
[2023-02-25 12:06] LABS: HCT - HEMATOCRIT 34.1 % (37.0-47.0); HGB - HEMOGLOBIN 11.9 g/dL (12.0-16.0); MEAN CORPUSCULAR HGB CONC 34.9 g/dL (32.0-36.0); MEAN CORPUSCULAR VOLUME 91.7 fL (81.0-99.0); MEAN PLATELET VOLUME 9.1 fL (7.9-10.8); RED BLOOD COUNT 3.72 10^6/uL (4.20-5.40); RED CELL DISTRIBUTION WIDTH 12.2 % (12.0-15.0); WHITE BLOOD COUNT 6.4 x10^3/uL (4.8-10.8)
== END 2023-02-25 10:54 | disposition home or self-care (01) ==
LOC: LAB 10:53
PROVIDERS: ATTEND Nurse Practitioner Obstetrics & Gynecology
DX: Z36.9 Encounter for antenatal screening, unspecified (principal)
CPT/HCPCS: 36415; 82950; 85027

== ENCOUNTER 2023-05-23 20:20 | Outpatient (CLI) | payer MEDICAID, OTHER ==
[2023-05-23 21:01] VITALS: BP 125/72; O2SAT 98
--- NOTE | 2023-05-24 15:59 | PROVIDER PROGRESS NOTE ---
- HPI Chief Complaint: Labor Check Current : Current EDU 06/02/23 Gestation 38 Weeks and 4 Days 3 Para 2 Vital Signs Temperature 36.5 C 05/23/23 20:40 Heart Rate 89 05/23/23 20:40 Respiratory Rate 18 05/23/23 20:40 Blood Pressure 125/72 05/23/23 20:40 Temperature 36.5 C 05/23/23 22:28 Heart Rate 83 05/23/23 20:43 Respiratory Rate 18 05/23/23 20:43 Blood Pressure 125/72 05/23/23 20:43 O2 Saturation 98 05/23/23 20:43 If not protocol: Oxygen Flow, liters/minute - Procedures OB Procedure Performed: NST Diagnosis/Indication for NST: Other NST Procedure: NST Procedure Start Date 05/23/23 Start Time 20:34 Stop Time 21:45 Vibroacoustic Stimulation Used No Patient States Movement Yes - Plan Plan: Akanksha presents to [facility] with c/o increased vaginal pressure that feels like she has to bear down and push. She reports intermittent contractions that feel like aracely mccurdy and are uncomfortable but she would not describe them as painful. She does not think she is in labor but the pressure has her feeling li ke she should be sure that she isn't. She denies vaginal bleeding or leakage of fluid. She reports +FM. SVE 08/10/-3, posterior, soft Repeat SVE in 1hr unchanged NST reactive. FHR baseline 140s, moderate variability, + accels, no decels Contractions palpate mild intermittently with soft resting tone Repeat SVE unchanged. Pt feels reassured. She has emergency contact number. Follow up with routine care. Reviewed warning s/sx and when to present. Pt verbalized understanding and agrees to above plan. She denies further questions or concerns at this time. FINAL DIAGNOSIS: False labor >37wks gestation
== END 2023-05-23 22:40 | disposition home or self-care (01) ==
LOC: WFO 20:20 → FBP 20:23 → WFO 22:40
PROVIDERS: ATTEND Nurse Practitioner Obstetrics & Gynecology
DX: O47.1 False labor at or after 37 completed weeks of gestation (principal); Z3A.38 38 weeks gestation of pregnancy
CPT/HCPCS: 59025; 99215

== ENCOUNTER 2023-06-02 02:27 | Inpatient (IN) | payer OTHER, MEDICAID ==
[2023-06-02] MEDS ORDERED: TRANEXAMIC ACID IN NACL 1,000 MG/100 ML BAG IV PRN (02:34)
[2023-06-02] MEDS ORDERED: NIFEdipine 10 MG CAPSULE PO PRN (02:34)
[2023-06-02] MEDS ORDERED: METHYLERGONOVINE 0.2 MG/ML VIAL IM PRN (02:34)
[2023-06-02] MEDS ORDERED: lidocaine 1% 20 ML MDV ID PRN (02:34)
[2023-06-02] MEDS ORDERED: OXYTOCIN 10 UNIT/ML VIAL IM PRN (02:34)
[2023-06-02] MEDS ORDERED: miSOPROStoL 200 MCG TABLET BC PRN (02:34)
[2023-06-02] MEDS ORDERED: fentaNYL 100 MCG/2 ML VIAL IVP PRN (02:34)
[2023-06-02] MEDS ORDERED: LABETALOL 20 MG/4 ML SYRINGE IVP PRN ×3 (02:34)
[2023-06-02] MEDS ORDERED: TERBUTALINE 1 MG/ML VIAL SUBQ PRN (02:34)
[2023-06-02] MEDS ORDERED: miSOPROStoL 200 MCG TABLET PR PRN (02:34)
[2023-06-02] MEDS ORDERED: OXYTOCIN/SODIUM CHLORIDE 500 ML IV PRN (02:34)
[2023-06-02] MEDS ORDERED: LACTATED RINGERS 1,000 ML IV PRN (02:34)
[2023-06-02] MEDS ORDERED: CARBOPROST TROMETHAMINE 250 MCG/ML AMP IM PRN (02:34)
[2023-06-02] MEDS ORDERED: hydrALAZINE INJ 20 MG/ML VIAL IVP PRN ×2 (02:34)
[2023-06-02] MEDS: LACTATED RINGERS 1,000 ML IV SCH (03:05)
[2023-06-02] MEDS: SODIUM CHLORIDE FLUSH 0.9% 10 ML SYRINGE IVP PRN (03:05)
[2023-06-02] MEDS ORDERED: LIDOCAINE 2%-EPI 1:100000 20 ML MDV ONE (03:15)
[2023-06-02] MEDS ORDERED: ROPIVACAINE 0.2% 200 MG/100 ML BAG EP ONE (03:16)
[2023-06-02 03:23] LABS: BASOPHILS # (AUTO) 0.1 10^3/uL (0.0-0.1); BASOPHILS % (AUTO) 0.6 %; EOSINOPHILS # (AUTO) 0.1 10^3/uL (0.0-0.7); EOSINOPHILS % (AUTO) 1.2 %; HCT - HEMATOCRIT 34.9 % (37.0-47.0); HGB - HEMOGLOBIN 12.2 g/dL (12.0-16.0); LYMPHOCYTES # (AUTO) 1.5 10^3/uL (1.5-3.5); LYMPHOCYTES % (AUTO) 17.9 %; MEAN CORPUSCULAR HEMOGLOBIN 31.5 pg (27.0-31.0); MEAN CORPUSCULAR VOLUME 90.2 fL (81.0-99.0); MEAN PLATELET VOLUME 9.8 fL (7.9-10.8); MONOCYTES # (AUTO) 0.5 10^3/uL (0.0-1.0); MONOCYTES % (AUTO) 5.7 %; NEUTROPHILS # (AUTO) 6.3 10^3/uL (1.5-6.6); NEUTROPHILS % (AUTO) 73.9 %; PLT - PLATELET COUNT 171 10^3/uL (130-450); RED BLOOD COUNT 3.87 10^6/uL (4.20-5.40); RED CELL DISTRIBUTION WIDTH 12.9 % (12.0-15.0); WHITE BLOOD COUNT 8.6 x10^3/uL (4.8-10.8)
[2023-06-02] MEDS ORDERED: ROPIVACAINE 0.2% 200 MG/100 ML BAG EP PRN ×2 (03:47→05:19)
[2023-06-02] MEDS ORDERED: NALOXONE 0.4 MG/ML VIAL IVP PRN (03:47)
--- NOTE | 2023-06-02 03:47 | ANESTHESIA ---
Pre-Anesthesia VS, & Labs - Diagnosis Active labor - Procedure vaginal delivery Vital Signs: Temp Pulse Resp BP Pulse Ox O2 Flow Rate 36.8 C 81 18 131/72 H 06/02/23 02:37 06/02/23 02:37 06/02/23 02:37 06/02/23 02:37 Height: 5 ft 3 in Weight (kg): 83.007 kg Body Mass Index: 32.4 BMI Classification: Obese - NPO Last Fluid Intake: clear liquids - Is Patient ?: Yes - Lab Results Current Lab Results: Laboratory Tests 06/02/23 03:00: WBC 8.6, RBC 3.87 L, Hgb 12.2, Hct 34.9 L, MCV 90.2, MCH 31.5 H, MCHC 35.0, RDW 12.9, Plt Count 171, MPV 9.8, Neut # (Auto) 6.3, Lymph # (Auto) 1.5, [place] # (Auto) 0.5, Eos # (Auto) 0.1, Baso # (Auto) 0.1, Absolute Nucleated RBC 0.00, Nucleated RBC % 0.0 Lab results reviewed: Yes Fish Bones: 06/02/23 03:00 Home Medications and Allergies Active Medications Carboprost Tromethamine (Carboprost Tromethamine 250 Mcg/Ml Amp) 250 mcg IM .ONCE PRN PRN Reason: Hemorrhage Fentanyl (Fentanyl 100 Mcg/2 Ml Vial) 50 mcg IVP Q1H PRN PRN Reason: Severe Pain (score 7-10) Hydralazine HCl (Hydralazine Inj 20 Mg/Ml Vial) 5 - 10 mg IVP Q20M PRN; Pr otocol PRN Reason: SBP> or= 160 OR DBP> or= 110 Hydralazine HCl (Hydralazine Inj 20 Mg/Ml Vial) 10 mg IVP .ONCE PRN; Protocol PRN Reason: SBP> or= 160 OR DBP> or= 110 Lactated Ringer's (Lr) 500 mls @ 999 mls/hr IV PRN PRN PRN Reason: resuscitation Oxytocin/Sodium Chloride (Pitocin/Sodium Chloride) 500 mls @ 999 mls/hr IV PRN PRN; Protocol PRN Reason: POST- HEMORR PREVENTION Tranexamic Acid (Tranexamic 1,000 Mg/100ml-Nacl) 1,000 mg in 100 mls @ 600 mls/hr IV Q30M PRN PRN Reason: EBL >1200mL and within 3hr Lactated Ringer's (Lr) 1,000 mls @ 125 mls/hr IV .Q8H SONIA Labetalol HCl (Labetalol 20 Mg/4 Ml Syringe) 20 - 80 mg IVP Q10M PRN; Protocol PRN Reason: SBP> or= 160 OR DBP> or= 110 Labetalol HCl (Labetalol 20 Mg/4 Ml Syringe) 20 mg IVP .ONCE PRN; Protocol PRN Reason: SBP> or= 160 OR DBP> or= 110 Labetalol HCl (Labetalol 20 Mg/4 Ml Syringe) 20 - 40 mg IVP Q10M PRN; Protocol PRN Reason: SBP> or= 160 OR DBP> or= 110 Lidocaine HCl (Lidocaine 1% 20 Ml Mdv) 20 ml ID .ONCE PRN PRN Reason: PERINEAL REPAIR Stop: 06/05/23 02:34 Methylergonovine Maleate (Methylergonovine 0.2 Mg/Ml Vial) 0.2 mg IM .ONCE PRN PRN Reason: Hemorrhage Misoprostol (Misoprostol 200 Mcg Tablet) 600 mcg BC .ONCE PRN PRN Reason: Hemorrhage Misoprostol (Misoprostol 200 Mcg Tablet) 800 mcg [place] .ONCE PRN PRN Reason: Hemorrhage Nifedipine (Nifedipine 10 Mg Capsule) 10 - 20 mg PO Q20M PRN; Protocol PRN Reason: SBP> or= 160 OR DBP> or= 110 Oxytocin (Oxytocin 10 Unit/Ml Vial) 10 unit IM .ONCE PRN PRN Reason: Step One if no IV access. Sodium Chloride (Sodium Chloride Flush 0.9% 10 Ml Syringe) 10 ml IVP PRN PRN PRN Reason: NEEDED PER PROVIDER ORDERS Terbutaline Sulfate (Terbutaline 1 Mg/Ml Vial) 0.25 mg SUBQ .ONCE PRN PRN Reason: Tachystole Allergies/Adverse Reactions: Allergies Allergy/AdvReac Type Severity Reaction Status Date / Time cefaclor [From [facility]] Allergy Unknown Verified 09/19/20 13:10 Anes History & Medical History - Anesthetic History Family history of Anesthesia Complications: Denies Family history of Malignant Hyperthermia: Denies - Medical History Cardiovascular: reports: None Pulmonary: reports: None Gastrointestinal: reports: None Urinary: reports: None Neuro: reports: None Musculoskeletal: reports: None Endocrine/Autoimmune: reports: None Blood Disorders: reports: None Skin: reports: None Smoking Status: Former smoker Psychosocial: reports: No issues indicated History of Cancer?: No - Obstetrical History : 3 Parity: 2 Events: reports: None Complications: reports: None Exam General: Alert, Oriented x3, Cooperative, No acute distress Dental: WNL Mouth Openin Fingerbreadth Neck Mobility: Normal Mallampati classification: II Thyromental Distance: 4-6 cm Mental/Cognitive Status: Alert/Oriented X3, Normal for patient Plan Anesthesia Type: Epidural Consent for Procedure(s) Verified and Reviewed: Yes Code Status: Attempt Resuscitation ASA classification: 2-Mild systemic disease Is this case an emergency?: No
[2023-06-02] MEDS: ePHEDrine 50 MG/ML VIAL IVP PRN (04:16)
--- NOTE | 2023-06-02 05:22 | ANESTHESIA PROCEDURE NOTE ---
Anesthesia Epidural Template - Patient Report Patient Reports: positive: Pain controlled - Other Comments Other Comments: Called for continued hypotension. Has had total of 15mg of ephedrine. Initiated 500ml bolus and changed epidural settings to 10 ml/hr with 6ml q 10mins PCEA. Last B/P 101/55, HR 92, patient asymptomatic.
--- NOTE | 2023-06-02 06:06 | PROVIDER PROGRESS NOTE ---
Labor Progress Note - Uterine Monitoring Uterine Monitoring Mode: positive: External toco Contraction Frequency (min/apart): 2-5 Contraction Intensity: positive: Strong Uterine Resting Tone: positive: Soft - Monitoring Monitor Mode: positive: External ultrasound Heart Rate Baseline: 140 Heart Rate Variability: positive: Moderate (6-25 bmp) Accelerations: positive: Present, 15x15 Decelerations: positive: None Strip Review: positive: Category I - Vaginal Exam Dilation (in cm): 7 Effacement (%): 100 Station: 1 Cervical Position: Anterior - Labor Progress Note Labor Progress Note/Additional Text: S: Comfortable with epidural and currently right side lying. Partner Amlik is supportive at the bedside. Feeling ready to have a baby. O: FHR baseline 140s, moderate variability, + accels, no decels Contractions palpate strong every 2-5 minutes with soft resting tone SVE 7/100/1, vertex AROM large amount of clear fluid A: 32yo @ 39.6wks gestation Active labor GBS negative FHR Category I P: Continue expectant management. Continuous monitoring. Position changes on peanut ball q 30 min. Anticipate .
--- NOTE | 2023-06-02 06:08 | HISTORY & PHYSICAL EXAMINATION ---
Admit History - Visit Reason Visit Reason: Contractions - : 3 Parity: 2 Premature: 0 Ectopic: 0 : 2 Care: positive: [facility] Risk/History: positive: None Complications This : positive: None Smoking Status: Former smoker - Mother's Labs Mother's Blood Type: positive: B Mother's RH: positive: Positive GBS: positive: Group B Step Negative Rubella Status: positive: Immune - HPI Current EDU 06/03/23 Gestation 39 Weeks and 6 Days 3 Vital Signs Temperature 36.8 C 06/02/23 02:37 Heart Rate 81 06/02/23 02:37 Respiratory Rate 18 06/02/23 02:37 Blood Pressure 131/72 H 06/02/23 02:37 Temperature 36.8 C 06/02/23 02:37 Heart Rate 81 06/02/23 02:37 Respiratory Rate 18 06/02/23 02:37 Blood Pressure 131/72 H 06/02/23 02:37 O2 Saturation If not protocol: Oxygen Flow, liters/minute - NST Procedure NST Procedure Start Time 20:34 Stop Time 21:45 - Results and Plan Findings/Impression: NST reactive. FHR baseline 140s, moderate variability, + accels, no decels Contractions palpate strong every 3-5 minutes with soft resting tone Meds/Allgy - Allergies Allergies/Adverse Reactions: Allergies Allergy/AdvReac Type Severity Reaction Status Date / Time cefaclor [From [facility]] Allergy Unknown Verified 06/02/23 05:26 Review of Systems - Constitutional Constitutional: denies: Fatigue, Fever, Chills, Malaise - Eyes Eyes: denies: Blurred vision, Spots in vision, Dipolpia - Cardiovascular Cariovascular: denies: Irregular heart rate, Palpitations, Chest pain, Edema - Respiratory Respiratory: denies: Cough, Wheezing, SOB at rest - Gastrointestinal Gastrointestinal: denies: Constipation, Diarrhea, Nausea, Vomiting - Genitourinary Genitourinary: denies: Dysuria - Integumentary Integumentary: denies: Rash, Pruritis - Neurological Neurological: denies: Headache - Psychiatric Psychiatric: denies: Depression, Anxiety - Hematologic/Lymphatic Hematologic/Lymphatic: denies: Anemia - All Other Systems All Other Systems: reports: Reviewed and negative Physical - Abdominal Exam Vital Signs: Temp Pulse Resp BP Pulse Ox O2 Flow Rate 36.8 C 81 18 131/72 H 06/02/23 02:37 06/02/23 02:37 06/02/23 02:37 06/02/23 02:37 Contraction Frequency (min/apart): 3-5 Contraction Intensity: positive: Strong Uterine Resting Tone: positive: Soft - Monitoring Heart Rate Baseline: 140 Strip Review: positive: Category I - Presentation Presentation: positive: Vertex - Vaginal Exam Membranes: positive: Membranes intact Dilation (in cm): 5 Effacement (%): 90 Station: positive: -1 - Speculum Exam Speculum Exam Performed: positive: No Plan for Labor - Plan For Labor I expect patient to be DC'd or transferred within 96 hours.: Yes Plan for Labor: HPI: This 32yo @ 39.6wks gestation by LMP c/w 8.1wk U/S presents to [facility] with c/o contractions. Upon arrival she is found to contract every 3-5 minutes. FHR baseline 140s, moderate variability, + accels, no decels. SVE 5/90/-1 and vertex with intact membranes. She reports contractions started early this morning around 0100 and have increased in frequency and intensity since that time. She denies vaginal bleeding or leakage of fluid. She does report losing her mucus plug around the time her contractions first started. She has been a patient of [facility] for the duration of her which has remained uncomplicated. She has received consistent care throughout her . She will be admitted to [facility] for expectant management. Her partner Malik is supportive at the bedside. Dating criteria: LMP: 08/27/2022 Initial U/S @ 8.1wks c/w LMP dating Serial exams - agree electrophysiologist History: Term NSVB x 2. SAB x0. Last pap 07/2021 WNL. Denies history of gonorrhea, chlamydia, genital herpes, oral herpes or any other STI. Sexual partner does NOT have HSV (oral or genital). G1: 03/02/2011 NSVB, 40wks, epidural, 7lbs G2: 06/10/2021 NSVB, 40.2wks, epidural G3: current Medical Hx: Anxiety Surgical Hx: None Social Hx: Monogamous with male partner Malik. Stopped drinking alcohol due to . Denies current use of tobacco, marijuana or other recreational drugs. Reports that she is safe in current relationship. Family Hx: Denies family history of congenital anomalies, Cystic Fibrosis or chromosomal abnormalities. HTN- father; Diabetes - sister Allergies: Ceclor Medications: PNV course: B positive, antibody negative Rubella immune, varicella NON-IMMUNE HIV non-reactive, RPR non-reactive Hep B neg, Hep C neg Initial U/S @ 8.1wks c/w LMP dating Genetic screening - negative FAS 12/2022: FAS WNL however incomplete visualization of cardiac structures and extremities. Posterior, fundal placenta, no previa. Size c/w dating (EFW 42%tile). 3VC. 01/2023: Completed anatomy survey within normal limits. Glucola: 80 Covid vaccine x 1 2021, no booster Influenza 03/2023 Tdap 03/2023 RSV 04/2023 GBS negative Physical exam: normocephalic, atraumatic Heart RRR w/o M/G/R Lungs CTAB Abdomen gravid, soft, nontender EFW 3500g FHR baseline 140s, moderate variability, + accels, no decels Contractions palpate strong every 3-5 minutes with soft resting tone SVE 5/90/-2, vertex. Membranes intact Bilateral LE's trace edema Mood is good Assessment: 32yo @ 39.6wks gestation by LMP c/w 8.1wk U/S Active labor FHR Category I GBS negative Plan: Admit to [facility] for expectant management. Continuous monitoring. Jacuzzi PRN. Nitrous oxide PRN. Epidural per maternal request. Anticipate .
[2023-06-02] MEDS ORDERED: HYDROCORTISONE 1% CREAM 28 GM TUBE PR PRN (07:18)
[2023-06-02] MEDS ORDERED: WITCH HAZEL/GLYCERIN 1 PAD TOP PRN (07:18)
--- NOTE | 2023-06-02 07:29 | DELIVERY NOTE ---
Delivery Note - Labor Labor: positive: Spontaneous - Delivery Method Delivery Method: positive: Spontaneous vaginal delivery - Presentation Presentation: positive: Vertex, VERONIKA - left occiput anterior - Nuchal Cord Nuchal Cord: positive: None - Amniotic Fluid Description Amniotic Fluid Description: positive: Clear - Episiotomy Type Episiotomy Type: positive: None - Laceration Laceration: positive: None - Delivery Outcome Delivery Outcome: positive: Livebirth - [place]: positive: Placed in direct skin contact with mother, Suctioned, Bulb syringe, Stimulated, Warmed, [place] used, Warmer used sex: positive: Male - Cord Cord: positive: 3 vessels - Placenta Placenta: positive: Intact, Spontaneous - Estimated Blood Loss Estimated Blood Loss (in cc): 200 - Post Delivery Events Post Delivery Events: positive: No post delivery events - Delivery Comments (Free Text/Narrative) Delivery Comments (Free Text/Narrative): Labor: This 32yo @ 39.6wks gestation by LMP c/w 8.1wk U/S presents to [facility] in active labor. She was found to contract every 3-5 minutes and SVE was 5/90/-2 and vertex with intact membranes. FHR demonstrated a Category 1 pattern throughout labor. Normal labor course. Epidural was placed per maternal request. AROM occurred at 0557 and was noted to be a large amount of clear fluid. Pt progressed to c/c/+1 and pushing spontaneously at 0630. : Normal SVB of viable male on 06/02/2023 @ 0636. No nuchal cord. The was placed on maternal abdomen, stimulated, warmed, and placed skin to skin. Apgars were 8/8 at 1 and 5 minutes respectively. Pitocin administered via IV for hemostasis. The umbilical cord was allowed to stop pulsating at which time it was doubly clamped by CNM and cut by FOB. 3VC. Cord blood was obtained. Fundal massage and gentle cord traction applied for active management of the third stage. Placenta delivered spontaneously and intact at 0645. EBL 200mL. Fourth stage: Uterine fundus firm and there is no excessive bleeding. The perineum, vagina, and cervix were inspected and found to be intact. Secondary to infant grunting and retractions the infant was moved to the infant warmer for CPAP and suctioning (see /casting machine adjuster note). Skin to skin contact initiated. Family bonding well. Both mother and baby were left in stable condition.
[2023-06-02] MEDS: IBUPROFEN 800 MG TABLET PO SCH (08:41)
[2023-06-02] MEDS: DOCUSATE SODIUM 100 MG CAPSULE PO SCH (08:43)
[2023-06-02] MEDS: ACETAMINOPHEN 500 MG TABLET PO SCH (08:43)
[2023-06-02 18:12] VITALS: O2SAT 98
[2023-06-03 09:12] VITALS: BP 104/61
--- NOTE | 2023-06-03 11:30 | Labor Flowsheet ---
Labor Flowsheet Datetime Report Generated by CPN: 06/03/2023 11:30 Datetime: 06/03/2023 08:42 VITAL SIGNS NBP Sys/Radha/Mean (mmHg): 103 : 61 : 70 Pulse: 70 LaborFlag: Labor Datetime: 06/03/2023 04:18 Stage of : Labor Datetime: 06/02/2023 08:29 Epidural Procedure Other: Cath Removed; Cath Intact Datetime: 06/02/2023 07:50 PAIN Pain Scale: 0 Datetime: 06/02/2023 07:38 Communication Comments: Datetime: 06/02/2023 07:19 Temperature (C): 36.9 Datetime: 06/02/2023 07:07 Anesthesia Comments: KELVIN off Datetime: 06/02/2023 06:45 Respirations: 18 Pain Presence: None/Denies Pain Type: N/A Stage 2 Comments: Placenta spont delivered Datetime: 06/02/2023 06:36 Comments: Alive male infant Datetime: 06/02/2023 06:31 STAGE 2 Pushing Position: Pushing with Contractions Datetime: 06/02/2023 06:30 Vital Sign Comments: UTERINE ACTIVITY Monitor Mode: External Frequency (min): 2-3.5 Quality: Moderate Duration (sec): 70-90 Pattern: Normal: <= 5 Contractions in 10 Minutes Resting Tone (Palpate): Relaxed ASSESSMENT A Monitor Mode: Telemetry FHR Baseline Rate : 150 FHR Baseline Changes: No Baseline Change Variability: Moderate 6-25 bpm Accelerations: 10X10 Decelerations: Early; Variable Actions for Decelerations: Sterile Vaginal Exam; Provider Notified Category: Category II Pain Location: Perineum Pain Relief Measures: Epidural Given VAGINAL EXAM Dilatation (cm): 10.0 Effacement (%): 100 Station: 1 Exam by: DARCIE Quinn I/O Interventions: Mendo[place] Discontinued (Annotations: 75ml dark yellow urine drained) Anesthesia Level Check: T7 Datetime: 06/02/2023 06:29 SpO2 (%): 99 Datetime: 06/02/2023 06:17 Patient Position/Activity: Left Tilt Datetime: 06/02/2023 06:15 Vaginal Bleeding: Normal Show Cervix, Consistency: Soft Cervix, Position: Anterior Vaginal Exam Comments: 2cm ant lip, no cervix post Datetime: 06/02/2023 05:57 Membrane Status: Ruptured Membranes Rupture Method: Artificial Amniotic Fluid Color: Clear Amniotic Fluid Amount: Large Amniotic Fluid Odor: Normal Datetime: 06/02/2023 05:52 Provider Reviewed Strip: Yes Strip Reviewed by: CNM Kai COMMUNICATION Communication: Provider at Bedside Provider Notified (Name): Kai at bedside Notification Reason: Status Update; Status; Labor Status; Membrane Status; Uterine Activity Datetime: 06/02/2023 05:30 Pain Goal: 3 Pain Coping: Talking Through Contractions Datetime: 06/02/2023 05:19 Patient Care Comments: 50ml [place] urine drained Datetime: 06/02/2023 05:12 Monitor Interventions for UA: [place] Adjusted Datetime: 06/02/2023 05:10 PATIENT CARE IV/Blood Work: IV Bolus Started; IV Bolus Given ml @ Datetime: 06/02/2023 04:22 MEDICATIONS Magnesium/Antihypertensives: Ephedrine IV (mg) @ (Annotations: 5mg given for hypotension r/t epidur al infusion) Datetime: 06/02/2023 03:56 MATERNAL ASSESSMENT Level of Consciousness: Alert DTR's/Clonus: DTRs 2+; No Clonus Headache: Denies Breath Sounds, Left: Clear and Equal Breath Sounds, Right: Clear and Equal Nausea/Vomiting: Denies RUQ Epigastric Pain: Denies Datetime: 06/02/2023 03:37 Epidural Procedure: Loading Dose Datetime: 06/02/2023 03:22 PROCEDURE TIME OUT Procedure Type: 0322 Procedure Verify: Correct Patient Identity; Correct Side and Site are Marked; Accurate Procedure Co nsent Form; Agreement on Procedure to be Done; Correct Patient Position; Safety Precautions Based on Patient History or Medication Use Epidural Positioning: Sitting Datetime: 06/02/2023 03:15 ANESTHESIA Anesthesia Plans: Epidural Datetime: 06/02/2023 03:00 Comfort Measures: Breathing/Relaxation; Family Support Datetime: 06/02/2023 02:45 TEACHING Instructional Method: Verbal; Patient Instructed; Family/Support Person Instructed; Verbalized Unde rstanding Plan of Care: Plan of Care Discussed; Vaginal Delivery Unit Routine: [place] to Room; Call [place]; Bed; Unit Personnel; Monitoring; IV Pumps; Safety/Fa ll Risk Prevention; Bathroom Privileges; Medications Labor/Induction: Labor Stages; Augmentation; Activity Pain Management: Epidural; Pain Scale/Goals; Comfort Measures Related: Nutrition; Hydration; Activity and Rest Datetime: 06/02/2023 02:40 Pain Assessment Comments: Datetime: 05/23/2023 22:06 Membranes Ruptured Date/Time: 06/02/2023 05:57
--- NOTE | 2023-06-03 17:23 | Discharge Plan ---
Discharge Plan Problem Reviewed?: Yes Disposition: Home, Self Care Condition: Good Diet: Regular Activity Restrictions: No Restrictions Shower Restrictions: No Driving Restrictions: No Weight Bearing: Full Weight Instruction Topics: Vaginal After, Nutrition , Self Care No Smoking: If you smoke, Please STOP! Call for help. Follow-up with: Holly Quinn CNM, [facility] [Provider Admit Priv/Credential] -
--- NOTE | 2023-06-03 17:28 | DISCHARGE SUMMARY ---
Discharge Summary Condition at Discharge: Good Discharge Disposition: 01 Home, Self Care - HOSPITAL COURSE Hospital Course: Date of Admission:06/02/2023 Date of Discharge: 06/03/2023 Diagnosis on Admission: 1. 32yo @ 39.6wks gestation by LMP c/w 8.1wk U/S 2. Active labor 3. FHR Category I 4. GBS negative Diagnosis on Discharge: 1. 32yo PPD#1 s/p TSVB viable male 2. 3. Normal recovery Brief history: She is a patient of [facility] who presented on 06/02/2023 in active labor. Cervix was 5/90/-2 and vertex with intact membranes. She was admitted and an epidural was placed per maternal request. AROM occurred for augmentation of labor and pt spontaneously progressed to deliver a viable male on 09/01/2023 at 0636. Apgars were 8/8 at 1 and 5 minutes respectively. He received a brief period of CPAP secondary to poor respiratory effort and improved quickly. Perineum was intact. EBL 200mL. She has been doing well in her course. She is ambulating and tolerating a regular diet. She is urinating without difficulty and her lochia is normal. Her pain is well controlled with oral medications. She will be dis charged home today on day #1 with instructions to continue taking her vitamin while and to continue taking ibuprofen and tylenol over the counter as needed for pain management. She intends to follow up with myself at [facility] in 1 week for routine visit or sooner if needed. She has been given precautions to call if she has any worsening fevers, chills, abdominal pain, increased vaginal bleeding or foul smelling vaginal lochia. Physical exam: Normocephalic, atraumatic. Heart RRR w/o M/G/R, lungs CTAB, abdomen soft and nontender with fundus firm at U, perineum intact, light lochia rubra, bilateral LE's trace edema. Mood is good. - ALLERGIES Allergies/Adverse Reactions: Allergies Allergy/AdvReac Type Severity Reaction Status Date / Time cefaclor [From [facility]] Allergy Unknown Verified 06/02/23 05:26 - LABS Result Diagrams: 06/02/23 03:00
== END 2023-06-03 10:15 | disposition home or self-care (01) | DRG 807 ==
LOC: WFO 02:27 → FBP 02:28 → WFO 02:33 → FBP 02:34
PROVIDERS: ADMIT Nurse Practitioner Obstetrics & Gynecology; ATTEND Nurse Practitioner Obstetrics & Gynecology
PROC: 10907ZC Drainage of Amniotic Fluid, Therapeutic from Products of Conception, Via Natural or Artificial Opening (ICD-10-PCS; principal; 2023-06-02)
PROC: 10E0XZZ Delivery of Products of Conception, External Approach (ICD-10-PCS; 2023-06-02)
DX: O99.214 Obesity complicating childbirth (principal); Z37.0 Single live birth; Z3A.39 39 weeks gestation of pregnancy
CPT/HCPCS: 59409; 85025; 86850; 86900; 86901; A9270; J7120